=== PATIENT | female | born 1975 | race African-American/Black ===

== ENCOUNTER 2018-12-18 04:20 | Emergency (ER) | payer OTHER ==
[~2018-12-18] VITALS: Ht 175.3 cm; Wt 90.7 kg
--- NOTE | ~2018-12-18 | EKG ---
[facility] [address] [facility] [place], [place] [address] Draft EK completed, results pending confirmation PATIENT NAME: BLAIR MERAZ Electrocardiogram DATE OF : [birth year] PHYSICIAN: PRELIMINARY REPORT #: [id number] REPORT IS CONFIDENTIAL AND NOT TO BE RELEASED WITHOUT AUTHORIZATION
== END 2018-12-18 06:22 | disposition home or self-care (01) ==
LOC: ED 04:20 → EDBD 04:21 → ED 04:21
DX: S16.1XXA Strain of muscle, fascia and tendon at neck level, initial encounter (principal); R07.89 Other chest pain; G89.29 Other chronic pain; M54.40 Lumbago with sciatica, unspecified side; M54.2 Cervicalgia; M79.605 Pain in left leg; I25.2 Old myocardial infarction; F17.200 Nicotine dependence, unspecified, uncomplicated; Z88.0 Allergy status to penicillin; Y04.0XXA Assault by unarmed brawl or fight, initial encounter
CPT/HCPCS: 71045; 80053; 84484; 85025; 85379; 85610; 85730; 93005; 93010; 96374; 99284-25; J1885; J7030